=== PATIENT | male | born 1960 | race Caucasian/White ===

== ENCOUNTER 2023-01-09 07:47 | Observation (INO) | payer OTHER, SELFPAY ==
[2023-01-09] VITALS (11 sets, daily range): BP systolic 126–151; BP diastolic 85–92; PULSE 98–115; RESP 15–26; TEMP 36.7–37.9; O2SAT 88–94; BMI 28.3; BMI 27.6
--- NOTE | 2023-01-09 07:54 | EX.ED.DYSGE1 ---
HPI History of Present Illness Chief Complaint: General Illness Narrative Narrative: 62-year-old male here for generalized weakness, cough and congestion for 1 week. The patient denies recent surgery in the last 4 weeks or immobilization in the last 3 days, denies previous diagnosis of DVT or PE, hemoptysis, unilateral leg swelling or malignancy with treatment the last 6 months. No estrogen use noted. No bleeding diathesis. no CP. PFSH PFSH Medical History Alcohol abuse Cataract Former smoker Hypertension Substance abuse Home Medications NK 01/09/23 [History Last Taken Unknown] Allergy/AdvReac Type Severity Reaction Status Date / Time No Known Allergies Allergy Verified 01/09/23 07:52 Social History Smoking Status: Former smoker ROS ROS ED ROS Narrative Constitutional: Denies fever HEENT: Denies sore throat Neck: Denies neck pain Cardiovascular: Denies chest pain, syncope Respiratory: endorses cough and SOB. GI: Denies nausea vomiting or abdominal pain : Denies changes in urinary habits Musculoskeletal: Denies muscle or joint pain Neurologic: Denies numbness weakness or loss of sensation Skin denies rash EXAM Physical Exam Narrative Exam Narrative: Nursing triage notes reviewed, Vital signs reviewed Constitutional: please see mdm HENT: MMM Eyes: Pupils equal round and reactive to light, Extraocular muscles intact Neck: No stridor, no JVD, full neck ROM Lungs: Diffuse bilateral crackles noted. Mildly increased work of breathing, no conversational dyspnea, no accessory muscle use, no nasal flaring. No respiratory distress noted Heart: Regular rate and rhythm, No murmurs, No rubs and No gallops, 2+ distal pulses (radial, femoral, posterior tibial) in all extremities Abdomen: Soft, there is no tenderness, rigidity, rebound or guarding, no obvious peritoneal signs, no palpable pulsatile abdominal masses, no auscultated abdominal bruit : No CVAT Extremities: No edema Neuro: No focal neurological deficits, cranial nerves II through XII intact, 5/5 strength in all extremities. Intact sensation to light touch in all extremities, 2+ reflexes bilateral patella dens. Normal gait. No ataxia. Skin: No rash or lesions noted Const Vital Signs: 01/09/23 07:48 01/09/23 07:48 01/09/23 07:52 Temperature 98.6 F Temperature Source Temporal Pulse Rate 111 H Respiratory Rate 20 H Respiratory Effort Short of Breath Labored Respiratory Pattern Tachypnea Blood Pressure 148/91 H Blood Pressure Mean 110 Pulse Ox 88 90 Oxygen Delivery Method Room Air Nasal Cannula Oxygen Flow Rate (L/min) 3 01/09/23 07:59 01/09/23 08:30 01/09/23 09:00 Temperature Temperature Source Pulse Rate 101 H 115 H Respiratory Rate 20 H 22 H Respiratory Effort Respiratory Pattern Normal Blood Pressure 126/89 H Blood Pressure Mean 101 Pulse Ox 94 94 Oxygen Delivery Method Nasal Cannula Nasal Cannula Oxygen Flow Rate (L/min) 3 3 MDM MDM MDM Narrative Medical decision making narrative: Chief Complaint: Weakness, cough congestion External records reviewed: No recent imaging of the test noted I considered the following differential diagnosis: Arrhythmia, ACS, anemia, COVID-19, influenza pneumonia, dehydration, acute kidney injury, anemia. I obtained a broad lab and imaging work-up to further elucidate etiology patient complaints. Consider obtaining a CT of the chest rule out PE however the patient low risk Wells score and no signs of right heart strain on EKG, troponin and BNP. EKG, troponin negative for signs of myocardial ischemia. Had no significant anemia or signs of dehydration. His flu swab came back positive. This likely etiology of his hypoxia. Given his new oxygen requirement I do not think he is safe to go home. The patient agreed to be admitted to the internal medicine service for oxygen therapy and ongoing evaluation. Gave Tamiflu given high risk features. Factors affecting care: None Social determinants of health: None History obtained from others: None Shared decision making: I will have a discussion with the patient and or visitors regarding risk/benefits of further testing or admission. They will be made aware of of the risk/benefits inherent in this decision they will be given the opportunity to voice understanding. Consults: Internal medicine, Dr. Blackmon, accepted the patient Lab Data Attestation: I reviewed the patient's lab results. Lab results narrative: CBC without leukocytosis, severe anemia, no thrombocytopenia. BMP with hyponatremia, no anion gap, no acute kidney injury, Troponin is negative, no evidence of myocardial ischemia BNP within normal limits no signs of volume overload or heart strain Lactic acid within normal limits, suggestive no evidence of end-organ hypoperfusion Influenza positive COVID-negative Labs: Laboratory Results - last 24 hr 01/09/23 01/09/23 01/09/23 07:50 07:50 07:50 WBC 9.3 RBC 4.99 Hgb 14.1 Hct 43.2 MCV 86.6 MCH 28.3 MCHC 32.6 RDW Std Deviation 44.9 H RDW Coeff of Esthela 14.2 Plt Count 168 MPV 12.1 H Sodium 131 L Potassium 3.6 Chloride 97 L Carbon Dioxide 28.0 Anion Gap 6 BUN 20 H Creatinine 0.99 Estim Creat Clear Calc 68.92 Est GFR (MDRD) Af Amer 98 Est GFR (MDRD) Non-Af 81 BUN/Creatinine Ratio 20.1 H Glucose 118 H Lactic Acid Calcium 8.7 Troponin I High Sens 13 B-Natriuretic Peptide 25.7 01/09/23 08:08 WBC RBC Hgb Hct MCV MCH MCHC RDW Std Deviation RDW Coeff of Esthela Plt Count MPV Sodium Potassium Chloride Carbon Dioxide Anion Gap BUN Creatinine Estim Creat Clear Calc Est GFR (MDRD) Af Amer Est GFR (MDRD) Non-Af BUN/Creatinine Ratio Glucose Lactic Acid 1.5 Calcium Troponin I High Sens B-Natriuretic Peptide Radiography Chest X-Ray - ED: Read by ED Physician Diagnostic Testing: Clinical Impression(s) from Imaging Studies Chest X-Ray 01/09/23 08:40 IMPRESSION: No acute thoracic pathology. Electronically Signed: Brando Mccullough MD at 8:58 EDT Reading Location ID and State: [facility] / [place] Tel , Service support , I have personally reviewed the patient's chest x-ray. Chest x-ray is unremarkable for pulmonary edema, pneumothorax, pneumonia or focal cardiopulmonary abnormality. EKG Initial EKG: Attestation: I personally reviewed and interpreted this EKG as follows: Interpretation: Sinus Tachycardia Comments: No STEMI, no right heart strain Management Discussion w/another healthcare provider: Hospitalist Treatment and Re-Evaluation :: Patient remained tachycardic but oxygen levels improved on 3 L he was appropriate for floor admission. Discharge Plan Dx/Rx/DC Orders Clinical Impression: Acute hyponatremia, Tachycardia, Tachypnea, Hypoxia, Influenza A Disposition Disposition: Acute Care Hospital [facility] Discharge Date/Time: 01/09/23 10:32
[2023-01-09 08:13] LABS: Hematocrit 43.2 % (40-54); Hemoglobin 14.1 g/dL (13.0-16.5); Mean Corp Hgb Conc 32.6 g/dL (32-36); Mean Corpuscular Hgb 28.3 pg (27.0-32.0); Mean Corpuscular Volume 86.6 fL (80-94); Mean Platelet Vol. 12.1 fl (6.2-12.0); Platelet Count 168 K/mm3 (150-450); RBC Distribution Width CV 14.2 % (11.6-14.6); RBC Distribution Width SD 44.9 fl (35.1-43.9); Red Blood Count 4.99 M/mm3 (4.6-6.2); White Blood Count 9.3 K/mm3 (4.4-11.0)
[2023-01-09] MEDS: Ipratropium/Albuterol Sulfate 3 ML AMPUL.NEB INHALATION ×2 (08:29→20:23)
[2023-01-09 08:37] LABS: Anion Gap 6 (5-15); BUN 20 mg/dL (7-18); BUN/Creat Ratio 20.1 RATIO (10-20); Calcium,Total 8.7 mg/dL (8.5-10.1); Chloride 97 mmol/L (98-107); Creatinine, Serum 0.99 mg/dL (0.70-1.30); EST Glomerular Filtration Rate 81 mL/min (>60); Est Glom Filt Rate - Afr Amer 98 mL/min (>60); Estimated Creatinine Clearance 68.92 ml/min; Glucose 118 mg/dL (74-106); Potassium 3.6 mmol/L (3.5-5.1); Sodium Level 131 mmol/L (136-145); Troponin-I HS 13 pg/mL (3.0-78.0)
[2023-01-09 08:38] LABS: BNP,B-Type NATRIURETIC PEPTIDE 25.7 pg/mL (0-100)
--- NOTE | 2023-01-09 08:40 | RAD_ITS ---
STUDY: X-RAY CHEST REASON FOR EXAM: Male, 62 years old. Chest pain TECHNIQUE: Frontal and lateral views of the chest COMPARISON: None. FINDINGS: The lungs are hyperinflated, but clear. There are no pleural effusions. There is no pneumothorax. The heart is normal in size. The visualized osseous structures are within normal limits. RAD/Chest PA and Lateral IMPRESSION: No acute thoracic pathology. Electronically Signed: Brando Mccullough MD at 8:58 EDT ,
[2023-01-09 08:48] LABS: Lactic Acid 1.5 mmol/L (0.4-1.9)
--- NOTE | 2023-01-09 09:16 | HP.PCM.HOS_ITS ---
[facility] - General General Date of Admission: 01/09/23 Date of Service: 01/09/23 Chief Complaint: Shortness of breath, cough and generalized weakness for 1 week. HPI Narrative HORTENCIA LAMB, is a 62 M with no significant chronic lung or heart disease came to ED for cough, generalized weakness and shortness of breath for 1 week. Patient stated he had loss of appetite but is now coming back. Patient denies any fever or chills. He has dry cough and mild pleuritic type chest pain on the right side. Chest pain is constant gets worse on coughing and right anterior location. No radiation. Patient denies prior history of COPD emphysema or coronary artery disease or CHF. He has history of smoking in the past, started in the teenage about three-quarter packs a day and quit 8 years ago. Patient was found to be hypoxic in ED, 88% on room air, 90% on 3-day of oxygen. Chest x-ray initially reviewed and does not show acute infiltrate or pulmonary edema or consolidation. Patient does not have leg swelling. Family history noncontributory to the present illness. [facility] Medical History Alcohol abuse Cataract Former smoker Hypertension Substance abuse Home Medications NK 01/09/23 [History Last Taken Unknown] Allergy/AdvReac Type Severity Reaction Status Date / Time No Known Allergies Allergy Verified 01/09/23 07:52 Social History Smoking Status: Former smoker ROS ROS Narrative Constitutional: Reports fatigue and weakness. No fever. HEENT: Reports systems reviewed and no addt'l complaints, except as documented Respiratory/Chest: As described in HPI. CVS: No leg edema. No coronary artery disease/CHF. No claudication pain. Gastrointestinal: Had one-time vomiting 3 to 4 days ago after eating food. Denies coffee ground emesis, hematemesis or diarrhea Genitourinary: Denies burning urination or new urinary tract symptoms Musculoskeletal: Denies joint pain and limited range of motion Neurologic: Denies seizure-like activity. No stroke. skin: No ulcer. No rash Endocrinology: Reports systems reviewed and no addt'l complaints, except as documented Hematologic/Lymphatic: Reports systems reviewed and no addt'l complaints, except as documented Rest 14 ROS are negative except as mentioned in HPI Vital Signs Vital Signs Vital Signs: 01/09/23 07:48 01/09/23 07:48 01/09/23 07:52 Temperature 98.6 F Temperature Source Temporal Pulse Rate 111 H Respiratory Rate 20 H Respiratory Effort Short of Breath Labored Respiratory Pattern Tachypnea Blood Pressure 148/91 H Blood Pressure Mean 110 Pulse Ox 88 90 Oxygen Delivery Method Room Air Nasal Cannula Oxygen Flow Rate (L/min) 3 01/09/23 07:59 01/09/23 08:30 01/09/23 09:00 Temperature Temperature Source Pulse Rate 101 H 115 H Respiratory Rate 20 H 22 H Respiratory Effort Respiratory Pattern Normal Blood Pressure 126/89 H Blood Pressure Mean 101 Pulse Ox 94 94 Oxygen Delivery Method Nasal Cannula Nasal Cannula Oxygen Flow Rate (L/min) 3 3 Weight Weight: 175 lb 7.807 oz Body Mass Index (BMI) 28.3 Physical Exam Narrative Physical exam General: Alert, Oriented x3, Cooperative HEENT: Atraumatic, PERRLA, EOMI, Normocephalic Oral: No Gingival or Mucosal Lesions/ Ulcerations oral mucosa moist. Neck: Supple, No JVD, Negative Carotid Bruits Chest wall/lungs: No tenderness on palpation. Air entry diminished in bilateral lung bases. No crepitation/rhonchi Cardiovascular: Regular rate, Regular Rhythm, Normal S1, Normal S2, No murmurs Abdomen: Bowel Sounds Present, Soft, Non Tender, Non-Distended : No renal angle tenderness. No suprapubic tenderness. Extremities: No edema, Capillary Refill Less than 3 Seconds Skin: No rashes, No breakdown Musculoskeletal: No Tenderness to Palpation of Joints or Extremities. Muscle strength 5/5 at major hip and knee joints. Neurological: Cranial nerves II-XII grossly intact, DTR 2+/4 and Symmetrical, Neuro grossly intact Psych/Mental Status: Normal Affect, Appropriate. Results Lab / Micro Data Result Diagrams: 01/09/23 07:50 01/09/23 07:50 Labs: Laboratory Results - last 24 hr 01/09/23 07:50: Sodium 131 L, Potassium 3.6, Chloride 97 L, Carbon Dioxide 28.0, Anion Gap 6, BUN 20 H, Creatinine 0.99, Estim Creat Clear Calc 68.92, Est GFR (MDRD) Af Amer 98, Est GFR (MDRD) Non-Af 81, BUN/Creatinine Ratio 20.1 H, Glucose 118 H, Calcium 8.7, Troponin I High Sens 13 01/09/23 07:50: B-Natriuretic Peptide 25.7 01/09/23 07:50: WBC 9.3, RBC 4.99, Hgb 14.1, Hct 43.2, MCV 86.6, MCH 28.3, MCHC 32.6, RDW Std Deviation 44.9 H, RDW Coeff of Esthela 14.2, Plt Count 168, MPV 12.1 H 01/09/23 08:08: Lactic Acid 1.5 Micro: Microbiology 01/09/23 08:10 Nasal Secretion SARS-CoV-2 & FLU Antigen (Rapid) - Final Influenzae A Radiology Impression Chest X-Ray 01/09/23 08:40 IMPRESSION: No acute thoracic pathology. Electronically Signed: Brando Mccullough MD at 8:58 EDT Reading Location ID and State: [facility] / [place] Tel , Service support , Assessment & Plan Assessment/Plan (1) Influenza A: PLAN: Plan This is a 62-year-old gentleman is being admitted for influenza A bronchitis. 1. Influenza A bronchitis: Patient admitted versus urgent evaluation. Patient is started on Tamiflu. DuoNeb as needed. Incentive spirometry and Pep. Rapid antigen positive for influenza A but SARS-CoV-2 antigen negative. Lactic acid normal. No leukocytosis or thrombocytopenia. 2. Mild hyponatremia and hyperkalemia probably due to dehydration/hypovolemia: IV fluid normal saline. K3.6, 1 dose of K-Dur given. 3. Hypertension: BP is 126/89 11/02/1951. Monitor BP. Started on low-dose lisinopril. Patient not on antihypertensive medication at home. 4. Ex-smoker: Patient quit his smoking 8 years ago. Patient may qualify for lung cancer screening with low-dose CT for advised follow-up with pulmonary clinic. Patient had quit smoking 8 years ago. Started smoking in teenage first about pack per day and then three-quarter of pack. VTE prophylaxis, moderate risk: Lovenox 40 mg subcu daily Microbiology Past 72 Hours 01/09/23 08:10 Nasal Secretion SARS-CoV-2 & FLU Antigen (Rapid) - Final Influenzae A Laboratory Results 01/09/23 07:50: Sodium 131 L, Potassium 3.6, Chloride 97 L, Carbon Dioxide 28.0, Anion Gap 6, BUN 20 H, Creatinine 0.99, Estim Creat Clear Calc 68.92, Est GFR (MDRD) Af Amer 98, Est GFR (MDRD) Non-Af 81, BUN/Creatinine Ratio 20.1 H, Glucose 118 H, Calcium 8.7, Troponin I High Sens 13 01/09/23 07:50: B-Natriuretic Peptide 25.7 01/09/23 07:50: WBC 9.3, RBC 4.99, Hgb 14.1, Hct 43.2, MCV 86.6, MCH 28.3, MCHC 32.6, RDW Std Deviation 44.9 H, RDW Coeff of Esthela 14.2, Plt Count 168, MPV 12.1 H 01/09/23 08:08: Lactic Acid 1.5 Charges/Coding Visit Charges Inpatient E&M: 82021 Init Hosp L3
[2023-01-09] MEDS: Oseltamivir Phosphate 75 MG Capsule PO ×2 (09:36→19:57)
[2023-01-09] MEDS: 0.9% Normal Saline 1,000 ML 75 ML IV (09:36)
[2023-01-09] MEDS: guaiFENesin/D-Methorphan TAB.SR.12H 2 TABLET PO (09:37)
[2023-01-09] MEDS: Enoxaparin 40 MG/0.4 ML Syringe SC (12:35)
--- NOTE | 2023-01-09 16:53 | CHAPLAIN ---
Type of Pastoral Visit _x__ Initial Visit ___ Follow-up Visit ___ On-call Visit ___ General Patient Visit ___ Spiritual Assessment ___ Family Conference ___ Bereavement ___ Rapid Response ___ Code Blue ___ Other (describe below) Pastoral Care Referral From _x__ Patient ___ Family ___ Nurse ___ Physician ___ Retail Store Manager ___ Enterprise Sales Executive ___ Other (describe below) Sacrament/Intervention _x__ Active listening ___ Anointing ___ Oriental Orthodox ___ Bereavement ___ Communion _x__ Shakira exploration ___ _x__ Life review _x__ Prayer ___ Reconciliation ___ Sacrament of Sick _x__ Supportive presence ___ Wedding ___ Other (describe below) Pastoral Comments patient is welcoming; pt gives some details about life and health; pt speaks of his goals to be well; during conversation it was apparent that 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
[2023-01-09] MEDS: Acetaminophen 325 MG Tablet 650 MG PO (20:03)
[2023-01-10] VITALS (8 sets, daily range): BP systolic 126–144; BP diastolic 86–87; PULSE 80–110; RESP 16–20; TEMP 36.6–36.8; O2SAT 89–98; BMI 27.5
[2023-01-10] MEDS: Ipratropium/Albuterol Sulfate 3 ML AMPUL.NEB INHALATION ×3 (01:41→10:38)
[2023-01-10 06:55] LABS: Absolute Lymphocyte Count 1.26 X10^3/uL (0.83-4.51); Absolute Neutrophil Count 5.7 X10^3/uL (2.0-7.7); Basophil# 0.06 X10^3/uL; Basophil% 0.7 % (0-1); Eosinophil# 0.05 X10^3/uL; Eosinophils% 0.6 % (0-5); Hematocrit 37.4 % (40-54); Hemoglobin 12.1 g/dL (13.0-16.5); Lymphocyte # 1.26 X10^3/ul (0.83-4.51); Lymphocyte % 15.5 % (19-41); Mean Corp Hgb Conc 32.4 g/dL (32-36); Mean Corpuscular Hgb 28.1 pg (27.0-32.0); Mean Platelet Vol. 10.9 fl (6.2-12.0); Monocyte# 0.93 X10^3/uL; Monocyte% 11.5 % (0-10); NRBC Flagged by Analyzer 0 % (0-5); Neutrophil # 5.74 X10^3/uL (2.7-7.7); Neutrophil % 70.8 % (47-70); POSITIVE MORPHOLOGY YES; Platelet Count 213 K/mm3 (150-450); RBC Distribution Width CV 14.3 % (11.6-14.6); RBC Distribution Width SD 45.7 fl (35.1-43.9); White Blood Count 8.1 K/mm3 (4.4-11.0)
[2023-01-10 07:05] LABS: Anion Gap 2 (5-15); BUN 14 mg/dL (7-18); BUN/Creat Ratio 16.6 RATIO (10-20); Chloride 101 mmol/L (98-107); Creatinine, Serum 0.84 mg/dL (0.70-1.30); EST Glomerular Filtration Rate 98 mL/min (>60); Est Glom Filt Rate - Afr Amer 118 mL/min (>60); Estimated Creatinine Clearance 81.23 ml/min; Glucose 107 mg/dL (74-106); Potassium 3.2 mmol/L (3.5-5.1); Sodium Level 133 mmol/L (136-145)
[2023-01-10 07:16] LABS: Differential Indicated SCAN CRITERIA MET
[2023-01-10 09:29] LABS: Atypical Lymphocyte 2+ %; Differential Comment SCANNED
--- NOTE | 2023-01-10 10:27 | DCINST_ITS ---
Discharge Instructions Diet Discharge Diet: No restrictions Activity Discharge Activity: Return to Normal Activity Weight Bearing Status: Weight bearing as tolerated Dressing / Incision Call your doctor if you observe: Fever of 101 or Higher, Coldness, Increased Pain, Numbness or Tingling, Change in Color, Inability to urinate, Inability to have a bowel movement, Shortness of breath, Dizziness, Fainting spells, Swelling in the ankles, Chest pain, Prolonged hiccupping, Increased palpitations (irregular heartbeat) and Calf discomfort Follow Up Care When: IN 2 WEEKS Test Results: Test results from this visit will be discussed in further detail at your follow- up appointment, if applicable. Discharge Plan Admission Admit Date/Time: 01/09/23 09:09 Primary Reason for Your Visit: Influenza A bronchitis Attending Provider: Cody Morgan Primary Care Provider: Care PhysicianNathalie Primary Instructions Additional Instructions / Restrictions: Patient may qualify for lung cancer screening with low-dose CT for advised follow-up with pulmonary clinic.? Patient had quit smoking 8 years ago.? Discharge Orders/Prescriptions Prescriptions: New oseltamivir 75 mg Capsule 75 mg PO BID 4 Days Qty: 8 0RF albuterol sulfate 90 mcg/actuation HFA aerosol inhaler 2 puff inhalation Q6H PRN (Reason: shortness of breath or wheezing) Qty: 6.7 0RF Referrals / Follow Up: Mario Childs MD [Med Staff - Active Staff] - Within 1 Month (for Lung Ca screening and PFT) Care Physician,No Primary [Primary Care Provider] - Disposition Disposition (needs filled in before D/C Order can be placed): Home, Self Care
--- NOTE | 2023-01-10 10:29 | PCM.DC.SUM ---
Providers Date of Admission: 01/09/23 Date of Discharge: 01/10/23 Primary Care Physician: No Primary Care Phys Reason For Visit: HYPOXIA AND INFUENZA A Diagnosis Discharge Diagnosis (1) Influenza A: Status: Acute Code(s): J10.1 - Influenza due to other identified influenza virus with other respiratory manifestations Plan This is a 62-year-old gentleman is being admitted for influenza A bronchitis. 1. Influenza A bronchitis: Patient admitted versus urgent evaluation. Patient is started on Tamiflu. DuoNeb as needed. Incentive spirometry and Pep. Rapid antigen positive for influenza A but SARS-CoV-2 antigen negative. Lactic acid normal. No leukocytosis or thrombocytopenia. 01/10: Patient might have undiagnosed COPD. Advised follow-up in pulmonary clinic which he accepted. He will need outpatient PFT. Patient is discharged on Tamiflu, Mucinex DM and albuterol inhaler. Prescription sent to patient's preferred pharmacy. 2. Mild hyponatremia and hyperkalemia probably due to dehydration/hypovolemia: IV fluid normal saline. K3.6, 1 dose of K-Dur given. 12/31: Potassium 3.2.01/10: Potassium replaced 3. Hypertension: BP is 126/89 . Monitor BP. Started on low-dose lisinopril. Patient not on antihypertensive medication at home. /Plan: Patient is discharged on lisinopril 10 mg daily. Prescription sent. 4. Ex-smoker: Patient quit his smoking 8 years ago. Patient may qualify for lung cancer screening with low-dose CT for advised follow-up with pulmonary clinic. Patient had quit smoking 8 years ago. Started smoking in teenage first about pack per day and then three-quarter of pack. 01/10: Patient accepted recommendation for lung cancer screening. Follow-up in pulmonary clinic. VTE prophylaxis, moderate risk: Lovenox 40 mg subcu daily Microbiology Past 72 Hours 01/09/23 08:10 Nasal Secretion SARS-CoV-2 & FLU Antigen (Rapid) - Final Influenzae A Laboratory Results 01/10/23 06:34: WBC 8.1, RBC 4.30 L, Hgb 12.1 L, Hct 37.4 L, MCV 87.0, MCH 28.1, MCHC 32.4, RDW Std Deviation 45.7 H, RDW Coeff of Esthela 14.3, Plt Count 213, MPV 10.9, Immature Gran % (Auto) 0.900, Neut % (Auto) 70.8 H, Lymph % (Auto) 15.5 L, [place] % (Auto) 11.5 H, Eos % (Auto) 0.6, Baso % (Auto) 0.7, Absolute Neuts (auto) 5.7, Absolute Lymphs (auto) 1.26, Nucleated RBC % 0, Differential Comment SCANNED, Atypical Lymphocytes 2+ 01/10/23 06:34: Sodium 133 L, Potassium 3.2 L, Chloride 101, Carbon Dioxide 30.0, Anion Gap 2 L, BUN 14, Creatinine 0.84, Estim Creat Clear Calc 81.23, Est GFR (MDRD) Af Amer 118, Est GFR (MDRD) Non-Af 98, BUN/Creatinine Ratio 16.6, Glucose 107 H, Calcium 8.0 L Medications at Discharge Home Medications albuterol sulfate 90 mcg/actuation aerosol inhaler 2 puff inhalation Q6H PRN shortness of breath or wheezing #6.7 grams 01/10/23 dextromethorphan-guaifenesin ER 60 mg-1,200 mg tab,extend release,12hr (Mucinex DM) 1 tab PO Q12H 7 days #14 tabs 01/10/23 lisinopril 10 mg tablet 10 mg PO DAILY #30 tabs 01/10/23 oseltamivir 75 mg capsule 75 mg PO BID 4 days #8 caps 01/10/23 Physical Exam Narrative Physical exam General: Alert, Oriented x3, Cooperative HEENT: Atraumatic, PERRLA, EOMI, Normocephalic Oral: No Gingival or Mucosal Lesions/ Ulcerations oral mucosa moist. Neck: Supple, No JVD, Negative Carotid Bruits Chest wall/lungs: No tenderness on palpation. Air entry diminished in bilateral lung bases. Bilateral coarse crepitations. Cardiovascular: Regular rate, Regular Rhythm, Normal S1, Normal S2, No murmurs Abdomen: Bowel Sounds Present, Soft, Non Tender, Non-Distended : No renal angle tenderness. No suprapubic tenderness. Extremities: No edema, Capillary Refill Less than 3 Seconds Skin: No rashes, No breakdown Musculoskeletal: No Tenderness to Palpation of Joints or Extremities. Muscle strength 5/5 at major hip and knee joints. Neurological: Cranial nerves II-XII grossly intact, DTR 2+/4 and Symmetrical, Neuro grossly intact Psych/Mental Status: Normal Affect, Appropriate. Weight / BMI Weight Weight: 171 lb 1.259 oz Body Mass Index (BMI) 27.5 ABG / Lab / Microbiology Data Result Diagrams: 01/10/23 06:34 01/10/23 06:34 Laboratory: Laboratory Results - last 24 hr 01/10/23 06:34: WBC 8.1, RBC 4.30 L, Hgb 12.1 L, Hct 37.4 L, MCV 87.0, MCH 28.1, MCHC 32.4, RDW Std Deviation 45.7 H, RDW Coeff of Esthela 14.3, Plt Count 213, MPV 10.9, Immature Gran % (Auto) 0.900, Neut % (Auto) 70.8 H, Lymph % (Auto) 15.5 L, [place] % (Auto) 11.5 H, Eos % (Auto) 0.6, Baso % (Auto) 0.7, Absolute Neuts (auto) 5.7, Absolute Lymphs (auto) 1.26, Nucleated RBC % 0, Differential Comment SCANNED, Atypical Lymphocytes 2+ 01/10/23 06:34: Sodium 133 L, Potassium 3.2 L, Chloride 101, Carbon Dioxide 30.0, Anion Gap 2 L, BUN 14, Creatinine 0.84, Estim Creat Clear Calc 81.23, Est GFR (MDRD) Af Amer 118, Est GFR (MDRD) Non-Af 98, BUN/Creatinine Ratio 16.6, Glucose 107 H, Calcium 8.0 L Microbiology: Microbiology 01/09/23 08:10 Nasal Secretion SARS-CoV-2 & FLU Antigen (Rapid) - Final Influenzae A D/C Instructions Discharge Diet: No restrictions Weight Bearing Status: Weight bearing as tolerated Call your doctor if you observe: Fever of 101 or Higher, Coldness, Increased Pain, Numbness or Tingling, Change in Color, Inability to urinate, Inability to have a bowel movement, Shortness of breath, Dizziness, Fainting spells, Swelling in the ankles, Chest pain, Prolonged hiccupping, Increased palpitations (irregular heartbeat) and Calf discomfort When: IN 2 WEEKS Meaningful Use Info Meaningful Use Diagnoses (Choose all that apply): None applicable Discharge Plan Admission Admit Date/Time: 01/09/23 09:09 Primary Reason for Your Visit: Influenza A bronchitis Attending Provider: Cody Morgan Primary Care Provider: Care Physician,No Primary Instructions Forms: Work / School Excuse Additional Instructions / Restrictions: Patient may qualify for lung cancer screening with low-dose CT for advised follow-up with pulmonary clinic.? Patient had quit smoking 8 years ago.? Discharge Orders/Prescriptions Prescriptions: New oseltamivir 75 mg Capsule 75 mg PO BID 4 Days Qty: 8 0RF albuterol sulfate 90 mcg/actuation HFA aerosol inhaler 2 puff inhalation Q6H PRN (Reason: shortness of breath or wheezing) Qty: 6.7 0RF dextromethorphan-guaifenesin [Mucinex DM] 60-1,200 mg tablet extended release 12 hr 1 tab PO Q12H 7 Days Qty: 14 0RF lisinopril 10 mg tablet 10 mg PO DAILY Qty: 30 0RF Referrals / Follow Up: Mario Childs MD [Med Staff - Active Staff] - Within 1 Month (for Lung Ca screening and PFT) Care Physician,No Primary [Primary Care Provider] - Disposition Disposition (needs filled in before D/C Order can be placed): Home, Self Care Charges/Coding Visit Charges Inpatient E&M: 53809 Disch Hosp >30min
[2023-01-10] MEDS: Oseltamivir Phosphate 75 MG Capsule PO (11:03)
[2023-01-10] MEDS: Potassium Chloride Oral Tablet 20 MEQ 40 MEQ PO ×2 (11:07→14:42)
--- NOTE | 2023-01-10 11:25 | CASEMGMT ---
Pt does not qualify for home oxygen.
--- NOTE | 2023-01-10 11:51 | PHA.DC.MR ---
Pharmacy Service has performed discharge medication reconciliation for this patient. The patient's discharge medication list was reviewed for discrepancies and discrepancies were resolved. Attempted to school guidance counselor via telephone but patient hung up. Home Medications albuterol sulfate 90 mcg/actuation aerosol inhaler 2 puff inhalation Q6H PRN shortness of breath or wheezing #6.7 grams 01/10/23 oseltamivir 75 mg capsule 75 mg PO BID 4 days #8 caps 01/10/23
== END 2023-01-10 14:58 | disposition home or self-care (01) ==
LOC: ED 08:55 → MS3 10:05
PROVIDERS: Admitting Provider Internal Medicine; Emergency Provider Emergency Medicine; Visit Provider Internal Medicine
DX: J10.1 Influenza due to other identified influenza virus with other respiratory manifestations (principal); I10 Essential (primary) hypertension; E87.1 Hypo-osmolality and hyponatremia; Z87.891 Personal history of nicotine dependence; E87.5 Hyperkalemia; J20.9 Acute bronchitis, unspecified; R06.02 Shortness of breath
CPT/HCPCS: 36415; 71046; 80048; 83605; 83880; 84484; 85025; 85027; 87040; 87070; 87205; 87428; 93005; 94640; 94668; 94762; 96360; 96361; 96372; 97802; 99221; 99252; 99285; J7030; A4216; G0378; G0463